=== PATIENT | female | born 1965 | race Caucasian/White ===

== ENCOUNTER 2017-03-12 16:42 | Emergency (ER) | payer OTHER ==
[2017-03-12 18:24] LABS: BASOPHIL % 0.4 % (0-2); PLATELET COUNT 332 x10^3mcL (130-400); RED CELL DISTRIBUTION WIDTH 14.2 % (11.5-14.5)
[2017-03-12 19:38] LABS: UA SPECIFIC GRAVITY 1.025 (1.005-1.035); microscopic required? YES; urine erythrocyte 3+ (NEGATIVE)
[2017-03-12 20:04] VITALS: BP 133/78
== END 2017-03-12 20:04 | disposition home or self-care (01) ==
LOC: ED 16:42
PROVIDERS: Emergency Medicine
DX: N94.6 Dysmenorrhea, unspecified (principal); N93.8 Other specified abnormal uterine and vaginal bleeding; I10 Essential (primary) hypertension; Z79.1 Long term (current) use of non-steroidal anti-inflammatories (NSAID)
CPT/HCPCS: 36415

== ENCOUNTER 2020-08-21 02:32 | Inpatient (IN) | payer OTHER, SELFPAY ==
[~2020-08-21] VITALS: Ht 165.1 cm; Wt 68.0 kg
[2020-08-21 02:37] VITALS: Ht 165.1 cm; Wt 68.0 kg
[2020-08-21 08:56] LABS: UA SPECIFIC GRAVITY 1.015 (1.005-1.035); microscopic required? YES; urine erythrocyte NEGATIVE (NEGATIVE)
[2020-08-21 09:30] LABS: CALCIUM 7.9 mg/dL (8.5-10.1); CARBON DIOXIDE 26.5 mmol/L (21-32); CHLORIDE SERUM 101 mmol/L (98-107); CREATININE SERUM 0.6 mg/dL (0.6-1.0); GFR1 > 60 mL/min; GLUCOSE SERUM 118 mg/dL (74-106); POTASSIUM SERUM 3.8 mmol/L (3.5-5.1); SODIUM SERUM 138 mmol/L (136-145)
[2020-08-21 09:34] LABS: ALKALINE PHOSPHATASE 89 U/L (46-116); ALT/SGPT 63 U/L (14-59); AST/SGOT 57 U/L (15-37); BILIRUBIN TOTAL 0.6 mg/dL (0.20-1.00); C REACTIVE PROTEIN 4.3 mg/dL (<=0.9); LACTIC DEHYDROGENASE (LDH) 248 U/L (100-190); TOTAL PROTEIN, SERUM 6.9 g/dL (6.4-8.2)
[2020-08-21 09:37] LABS: ALBUMIN 3.3 g/dL (3.4-5.0)
[2020-08-21 15:13] LABS: BASOPHIL % 0.2 % (0.2-1.3); PLATELET COUNT 220 x10^3mcL (179-408); RED CELL DISTRIBUTION WIDTH 13.3 % (12.3-17.7)
[2020-08-21 16:31] VITALS: BP 114/64
[2020-08-21 22:12] VITALS: BP 118/77
[2020-08-22 06:19] VITALS: BP 123/81
[2020-08-22 07:22] LABS: BASOPHIL % 0.1 % (0.2-1.3); PLATELET COUNT 229 x10^3mcL (179-408); RED CELL DISTRIBUTION WIDTH 13.3 % (12.3-17.7)
[2020-08-22 08:29] LABS: ALKALINE PHOSPHATASE 85 U/L (46-116); ALT/SGPT 73 U/L (14-59); AST/SGOT 58 U/L (15-37); BILIRUBIN TOTAL 0.5 mg/dL (0.20-1.00); CALCIUM 8.3 mg/dL (8.5-10.1); CARBON DIOXIDE 24.3 mmol/L (21-32); CHLORIDE SERUM 106 mmol/L (98-107); CREATININE SERUM 0.6 mg/dL (0.6-1.0); GFR1 > 60 mL/min; GLUCOSE SERUM 105 mg/dL (74-106); MAGNESIUM 2.4 mg/dL (1.8-2.4); POTASSIUM SERUM 4.1 mmol/L (3.5-5.1); SODIUM SERUM 142 mmol/L (136-145); TOTAL PROTEIN, SERUM 6.6 g/dL (6.4-8.2)
[2020-08-22 08:57] VITALS: BP 126/76
[2020-08-22 11:39] VITALS: BP 112/73
[2020-08-22 17:36] VITALS: BP 114/75
[2020-08-22 21:25] VITALS: BP 112/76
[2020-08-23 05:38] VITALS: BP 104/56
[2020-08-23 07:47] LABS: BASOPHIL % 0.1 % (0.2-1.3); RED CELL DISTRIBUTION WIDTH 13.4 % (12.3-17.7)
[2020-08-23 07:55] LABS: PLATELET COUNT 259 x10^3mcL (179-408)
[2020-08-23 08:05] LABS: ALKALINE PHOSPHATASE 80 U/L (46-116); ALT/SGPT 56 U/L (14-59); AST/SGOT 35 U/L (15-37); BILIRUBIN TOTAL 0.6 mg/dL (0.20-1.00); CARBON DIOXIDE 25.3 mmol/L (21-32); CHLORIDE SERUM 107 mmol/L (98-107); CREATININE SERUM 0.6 mg/dL (0.6-1.0); GFR1 > 60 mL/min; GLUCOSE SERUM 94 mg/dL (74-106); MAGNESIUM 2.1 mg/dL (1.8-2.4); POTASSIUM SERUM 3.6 mmol/L (3.5-5.1); SODIUM SERUM 141 mmol/L (136-145)
[2020-08-23 08:22] LABS: ALBUMIN 2.8 g/dL (3.4-5.0)
[2020-08-23 08:38] VITALS: BP 125/70
[2020-08-23] MEDS ORDERED: ROBDML PO (11:16)
[2020-08-23] MEDS ORDERED: DEC10I PO (11:17)
[2020-08-23] MEDS ORDERED: ELIQUIS5 MG PO (11:18)
[2020-08-23 11:49] VITALS: BP 124/77
[2020-08-23 11:49] LABS: CALCIUM 8.5 mg/dL (8.5-10.1)
[2020-08-23 13:52] VITALS: BP 124/77
[2020-08-23 17:23] VITALS: BP 111/72
== END 2020-08-23 18:25 | disposition home health service (06) | DRG 177 ==
LOC: ED 02:32 → DU 09:13
PROVIDERS: Emergency Medicine; ADMIT Hospitalist; ATTEND Hospitalist
DX: U07.1 COVID-19 (principal); J12.89 Other viral pneumonia; J96.01 Acute respiratory failure with hypoxia
CPT/HCPCS: 36600; 83880; 85378; 87804; G0378; J0456; J0696; J1100; J1650; J7030; J7050; J7060; U0003